=== PATIENT | female | born 1985 | race African-American/Black ===

== ENCOUNTER 2018-02-10 08:05 | Emergency (ER) | payer OTHER ==
[2018-02-10 08:10] VITALS: BP 117/76; TEMP 98.4; BMI 43.2
--- NOTE | 2018-02-10 08:55 | PDOC ---
History of Present Illness - General Chief Complaint: Sore Throat Stated Complaint: THROAT PAIN Time Seen by Provider: 02/10/18 08:32 - History of Present Illness Initial Comments: 02/10/18 08:49 CHIEF COMPLAINT: sore throat HISTORY OF PRESENT ILLNESS: 32 yo F with no significant PMH presents to ED with sore throat, coughing, and runny nose x 10 days. Patient reports "fullness" to b /l ears, pain with swallowing, and productive cough. Patient denies any fever, chills, vomiting, diarrhea. Patient states she has taken Nyquil for the last 2 days without relief. No recent travel or sick contacts. PAST MEDICAL HISTORY: Denies past medical history FAMILY HISTORY: Denies SOCIAL HISTORY: Denies tobacco, alcohol, illicit drug use. SURGICAL HISTORY: Denies ALLERGIES: No known drug allergies REVIEW OF SYSTEMS General/Constitutional: Denies fever or chills. Denies weakness, weight change. HEENT: Sore throat, ear fullness, runny nose. Denies change in vision. Cardiovascular: Denies chest pain or shortness of breath. Respiratory: Productive cough. Denies, wheezing, or hemoptysis. Gastrointestinal: Denies nausea, vomiting, diarrhea or constipation. Denies rectal bleeding. Genitourinary: Denies dysuria, frequency, or change in urination. Musculoskeletal: Denies joint or muscle swelling or pain. Denies neck or back pain. Skin and breasts: Denies rash or easy bruising. Neurologic: Denies headache, vertigo, loss of consciousness, or loss of sensation. Psychiatric: Denies depression or anxiety. PHYSICAL EXAM General Appearance: Well-appearing, appropriately dressed. No apparent distress , no intoxication. HEENT: Exudate to b/l tonsils, no erythema or swelling to b/l tonsils. Nasal congestion, swollen turbinates. EOMI, PERRLA, normal voice, TMs normal. No conjunctival pallor. No photophobia, scleral icterus. Neck: Supple. Trachea midline. No tenderness, rigidity, carotid bruit, stridor , lymphadenopathy, or thyromegaly. Respiratory/Chest: Lungs CTAB. No shortness of breath, chest tenderness, respiratory distress, accessory muscle use. No crackles, rales, rhonchi, stridor , wheezing, dullness Cardiovascular: RRR. S1, S2. Gastrointestinal/Abdominal: Normal bowel sounds. Abdomen soft, non-distended. No tenderness or rebound tenderness. No organomegaly, pulsatile mass, guarding , hernia, hepatomegaly, splenomegaly. Musculoskeletal/Extremities: Normal inspection. FROM of all extremities, normal capillary refill. Pelvis Stable. No CVA tenderness. No tenderness to extremities, pedal edema, swelling, erythema or deformity. Integumentary: Appropriate color, dry, warm. No cyanosis, erythema, jaundice or rash Neurologic: engineer/conductor II-XII intact. Fully oriented, alert. Appropriate mood/affect. Motor strength 5/5. No appreciable EOM palsy, facial droop or sensory deficit. 02/10/18 09:29 Past History - Past Medical History Allergies/Adverse Reactions: Allergies Allergy/AdvReac Type Severity Reaction Status Date / Time No Known Allergies Allergy Verified 02/10/18 08:10 Home Medications: Ambulatory Orders Benzonatate [Tessalon Pearls -] 100 mg PO TID #21 capsule 02/10/18 Pseudoephedrine HCl [Sudafed 12-Hour] 120 mg PO BID #20 tablet.er 02/10/18 COPD: No - Suicide/Smoking/Psychosocial Hx Smoking Status: No Smoking History: Never smoked Number of Cigarettes Smoked Daily: 0 *Physical Exam - Vital Signs Last Vital Signs Temp Pulse Resp BP Pulse Ox 98.4 F 115 H 20 117/76 97 02/10/18 08:06 02/10/18 08:06 02/10/18 08:06 02/10/18 08:06 02/10/18 08:06 Medical Decision Making - Medical Decision Making 02/10/18 08:55 32 yo F with no significant PMH presents to ED with sore throat, coughing, and runny nose x 10 days. -flu, strep swabs 02/10/18 09:29 flu, strep negative, likely URI *DC/Admit/Observation/Transfer Diagnosis at time of Disposition: Upper respiratory infection Qualifiers: URI type: unspecified viral URI Qualified Code(s): J06.9 - Acute upper respiratory infection, unspecified - Discharge Dispostion Disposition: HOME Condition at time of disposition: Stable Decision to Admit order: No - Prescriptions Prescriptions: Benzonatate [Tessalon Pearls -] 100 mg PO TID #21 capsule Pseudoephedrine HCl [Sudafed 12-Hour] 120 mg PO BID #20 tablet.er - Referrals Referrals: Anthony Islas MD [Primary Care Provider] - - Patient Instructions Printed Discharge Instructions: DI for Viral Upper Respiratory Infection -- Adult Additional Instructions: Please take medications as prescribed. Follow up with your primary care doctor in 5 days if symptoms persist. If you develop fever, chills, vomiting, diarrhea , or any new or worsening symptoms, please return to the ER immediately. - Post Discharge Activity
[2018-02-10 09:30] VITALS: PULSE 86
== END 2018-02-10 09:35 | disposition home or self-care (01) ==
LOC: JERFT 08:05
DX: J06.9 Acute upper respiratory infection, unspecified (principal); B97.89 Other viral agents as the cause of diseases classified elsewhere
CPT/HCPCS: 87070; 87430; 87804; 99281-25

== ENCOUNTER 2021-01-18 17:43 | Emergency (ER) | payer OTHER ==
[2021-01-18 18:07] VITALS: BP 113/78; PULSE 122; TEMP 98.8; BMI 38.0
[2021-01-18] MEDS ORDERED: LIDOCAINE 5% TOPICAL PATCH TP ONE (18:48)
[2021-01-18] MEDS ORDERED: KETOROLAC TROMETHAMINE 30 MG/1 ML VIAL IM ONE (18:48)
[2021-01-18] MEDS ORDERED: LIDOCAINE 5% TOPICAL PATCH ONE (19:29)
[2021-01-18] MEDS ORDERED: KETOROLAC TROMETHAMINE 30 MG/1 ML VIAL ONE (19:29)
[2021-01-18] MEDS ORDERED: LIDOCAINE PATCH REMOVAL MC ONE (22:00)
== END 2021-01-18 19:51 | disposition home or self-care (01) ==
LOC: JER 17:43
PROC: 3E0233Z Introduction of Anti-inflammatory into Muscle, Percutaneous Approach (ICD-10-PCS; principal; 2021-01-18)
DX: M54.2 Cervicalgia (principal); V89.2XXA Person injured in unspecified motor-vehicle accident, traffic, initial encounter; Y92.9 Unspecified place or not applicable
CPT/HCPCS: 72050-TC-FY; 72070-TC-FY; 99284-25

== ENCOUNTER 2021-09-18 14:37 | Emergency (ER) | payer OTHER ==
[2021-09-18 14:55] VITALS: TEMP 98; BMI 39.5
[2021-09-18] MEDS ORDERED: FAMOTIDINE 20 MG TABLET PO ONE (15:18)
[2021-09-18] MEDS ORDERED: FAMOTIDINE 20 MG TABLET ONE (15:29)
[2021-09-18 16:13] LABS: BASO % 0.8 % (0-2.0); EOS % 2.8 % (0-4.5); HEMATOCRIT 41.6 % (32.4-45.2); HEMOGLOBIN 13.6 GM/dL (10.7-15.3); LYMPH % 26.8 % (8-40); MCH 28.7 pg (25.7-33.7); MCHC 32.7 g/dl (32.0-36.0); MEAN CELL VOLUME 87.9 fl (80-96); MEAN PLT VOLUME 8.2 fl (7.5-11.1); MONO % 5.6 % (3.8-10.2); PLATELET COUNT 355 10^3/uL (134-434); RBC 4.73 M/mm3 (3.60-5.2)
[2021-09-18 16:30] LABS: ALBUMIN 3.5 g/dl (3.4-5.0); BLOOD UREA NITROGEN 14.4 mg/dL (7-18); CALCIUM 9.7 mg/dL (8.5-10.1)
[2021-09-18 16:33] LABS: CREATININE 0.7 mg/dL (0.55-1.3)
[2021-09-18 16:35] LABS: BILIRUBIN,TOTAL 0.3 mg/dL (0.2-1); TOT PROT 7.1 g/dl (6.4-8.2)
[2021-09-18 20:16] VITALS: BP 110/68
[2021-09-18 20:57] VITALS: PULSE 104
== END 2021-09-18 21:00 | disposition home or self-care (01) ==
LOC: JER 14:37
DX: R07.9 Chest pain, unspecified (principal)
CPT/HCPCS: 36415; 71046-TC-FY; 71275-TC; 80053; 84484; 84703; 85025; 85379; 93005; 93010; 99285-25; Q9967